=== PATIENT | male | born 2000 | race Caucasian/White ===

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

== ENCOUNTER 2022-01-30 16:31 | Emergency (ER) | payer OTHER ==
[~2022-01-30] VITALS: Ht 180.3 cm; Wt 92.1 kg
[2022-01-30 16:39] VITALS: BP 140/83
[2022-01-30] MEDS ORDERED: IBUP-2213 PO (17:29)
[2022-01-30] MEDS ORDERED: METH-1681 PO (17:29)
--- NOTE | 2022-01-30 17:38 | NUR ---
NO NURSING INTERVENTIONS PROVIDED
[2022-01-30 17:40] VITALS: BP 140/83
--- NOTE | 2022-01-30 17:40 | NUR ---
Patient discharged with v/s stable. Written and verbal after care instructions ABOUT THORACIC STRAIN given and explained. Patient alert, oriented and verbalized understanding of instructions. Ambulatory with steady gait. All questions addressed prior to discharge. ID band removed. Patient advised to follow up with PMD. Rx of IBUPROFEN AND ROBAXIN given. Patient educated on indication of medication including possible reaction and side effects. Opportunity to ask questions provided and answered.
== END 2022-01-30 17:40 | disposition home or self-care (01) ==
LOC: MED 16:31
DX: S29.012A Strain of muscle and tendon of back wall of thorax, initial encounter (principal); X50.9XXA Other and unspecified overexertion or strenuous movements or postures, initial encounter; Y93.89 Activity, other specified; Y92.89 Other specified places as the place of occurrence of the external cause; Y99.8 Other external cause status
CPT/HCPCS: 99283